=== PATIENT | female | born 1990 | race African-American/Black ===

== ENCOUNTER 2023-01-06 05:56 | Emergency (ER) | payer OTHER ==
[2023-01-06 06:02] VITALS: BMI 37.2
[2023-01-06] MEDS ORDERED: ONDANSETRON 4 MG/2 ML VIAL IVPUSH ONE (06:09)
[2023-01-06] MEDS ORDERED: HYDROmorphone HCl 2 MG/ML VIAL IVPUSH ONE (06:09)
[2023-01-06 06:58] LABS: BASO % 0.3 % (0-2.0); EOS % 0.5 % (0-4.5); HEMOGLOBIN 12.5 GM/dL (10.7-15.3); LYMPH % 33.2 % (8-40); MCHC 32.8 g/dl (32.0-36.0); MEAN CELL VOLUME 85.5 fl (80-96); MEAN PLT VOLUME 8.9 fl (7.5-11.1); MONO % 5.5 % (3.8-10.2); NEUT % 60.5 % (42.8-82.8); PLATELET COUNT 240 10^3/uL (134-434); POTASSIUM 4.1 mmol/L (3.5-5.1); RBC 4.45 M/mm3 (3.60-5.2); RDW 14.7 % (11.6-15.6); WHITE BLOOD COUNT 5.5 K/mm3 (4.0-10.0)
[2023-01-06 07:03] LABS: ALBUMIN 3.8 g/dl (3.4-5.0); CALCIUM 9.6 mg/dL (8.5-10.1)
[2023-01-06 07:06] LABS: CREATININE 0.9 mg/dL (0.55-1.3)
[2023-01-06 07:07] LABS: INR 1.03 (0.83-1.09)
[2023-01-06 07:08] LABS: TOT PROT 7.1 g/dl (6.4-8.2)
[2023-01-06 07:10] LABS: ACTIVATED PTT 29.6 SECONDS (25.2-36.5)
[2023-01-06 07:11] LABS: BILIRUBIN,TOTAL 0.8 mg/dL (0.2-1)
[2023-01-06 12:32] LABS: PH,URINE 7.5 (5.0-8.0); URINE APPEARANCE CLEAR; URINE BILIRUBIN NEGATIVE (NEGATIVE); URINE COLOR DK YELLOW; URINE GLUCOSE (UA) 1+ (NEGATIVE); URINE KETONE TRACE (NEGATIVE); URINE LEUK ESTERASE NEGATIVE (NEGATIVE); URINE NITRITE NEGATIVE (NEGATIVE); URINE PROTEIN NEGATIVE (NEGATIVE)
[2023-01-06 13:29] VITALS: BP 110/74; PULSE 74; RESP 16; TEMP 98.3
== END 2023-01-06 13:44 | disposition home or self-care (01) ==
LOC: JER 05:56
PROC: 3E033GC Introduction of Other Therapeutic Substance into Peripheral Vein, Percutaneous Approach (ICD-10-PCS; principal; 2023-01-06)
PROC: 3E033GC Introduction of Other Therapeutic Substance into Peripheral Vein, Percutaneous Approach (ICD-10-PCS; 2023-01-06)
DX: R10.11 Right upper quadrant pain (principal); R11.2 Nausea with vomiting, unspecified; K80.20 Calculus of gallbladder without cholecystitis without obstruction
CPT/HCPCS: 36415; 76705-TC; 80053; 81003; 84703; 85025; 85610; 85730; 86850; 86900; 86901; 87086; 99284-25